=== PATIENT | female | born 1945 | race Caucasian/White ===

== ENCOUNTER 2016-12-14 06:56 | Day surgery (SDC) | payer MEDICARE, BC ==
[~2016-12-14] VITALS: Ht 167.7 cm; Wt 119.0 kg
[2016-12-14] VITALS (10 sets, daily range): BP systolic 93–139; BP diastolic 54–80; PULSE 52–59; TEMP 98.1
[~2016-12-14 06:56] MED LIST: AMLOPIDINE; ASPIRIN 32325 MG/TAB PO; ASPIRIN E.C.325 MG PO; ATORVASTATIN; BENICAR40 MG PO; BUFFERED ASPIR325 M1 PO; BYSTOLIC5 MG PO; CATAPRES 0.1MG0.1 MG PO; CENTRUM CARDIO PO; CLOPIDOGREL; CLOPIDOGREL PO; FORTAMET500 MG PO; HCTZ 25MG TAB25 MG PO; HCTZ12.5TAB PO; IMDUR 30MG30 MG/TAB PO; KLONOPIN 0.5MG0.5 MG PO; LEVOTHROID0.125 MG PO; LEVOTHYROXINE0.15 M1 PO; LISINOPRIL10 MG PO; LOPRESSOR 550 MG/TAB PO; LOPRESSOR100 MG PO; NIASPAN500 MG PO; NORVASC10 MG PO; RT SPIRIVA18 MCG IH; SYNTHROID PO; SYNTHROID0.175 MG PO; TOPROL XL50 MG PO; TYLENOL 325MG325 MG PO; TYLENOL 500MG500 MG PO; ULTRAM 50MG TAB50 MG PO; VICODIN 5/5001 UDTAB PO; ZOCOR80 MG PO; ZOLOFT 100MG100 MG PO; ZOLOFT 50MG50 MG PO
[2016-12-14] MEDS ORDERED: FISH OIL1000 MG PO (08:08)
[2016-12-14] MEDS ORDERED: MULTI VITAMINS1 TAB PO (08:10)
[2016-12-14] MEDS ORDERED: NIACOR500 MG PO (08:11)
[2016-12-14] MEDS ORDERED: NITROSTAT0.4 MG/TAB SL (08:11)
[2016-12-14] MEDS ORDERED: SPIRIVA RE2.5 MCG/Ac IH (08:14)
[2016-12-14 08:26] LABS: MEAN CELL VOLUME 88 fl (80.0-100.0); MEAN CORPUSCULAR HEMOGLOBIN 28 pg (27.0-31.0); MEAN CORPUSCULAR HGB CONC 32 g/dl (33.0-37.0); MEAN PLATELET VOLUME 10.2 fl (7.4-10.4); PLATELET COUNT 207 K/mm3 (130-400); RED BLOOD COUNT 4.33 M/mm3 (4.10-5.30); WHITE BLOOD COUNT 6.2 K/mm3 (4.8-10.8)
[2016-12-14 08:28] LABS: INR 0.9 (0.8-3.0); PROTHROMBIN TIME 10.3 SECONDS (9.7-12.8)
[2016-12-14 08:29] LABS: CREATININE, serum 0.71 mg/dL (0.52-1.25); POTASSIUM 4.1 mmol/L (3.4-5.0)
[2016-12-14] MEDS ORDERED: ASPIRIN E.C. 8181 MG PO (11:17)
== END 2016-12-14 13:00 | disposition home or self-care (01) ==
LOC: COL.RAD 06:56
PROVIDERS: Internal Medicine Interventional Cardiology
DX: I25.10 Atherosclerotic heart disease of native coronary artery without angina pectoris (principal); R94.39 Abnormal result of other cardiovascular function study; R07.9 Chest pain, unspecified; R60.0 Localized edema; I73.9 Peripheral vascular disease, unspecified; Z79.02 Long term (current) use of antithrombotics/antiplatelets; Z79.899 Other long term (current) drug therapy; Z79.82 Long term (current) use of aspirin; E03.9 Hypothyroidism, unspecified; I10 Essential (primary) hypertension; E78.5 Hyperlipidemia, unspecified; E11.9 Type 2 diabetes mellitus without complications; Z87.891 Personal history of nicotine dependence
CPT/HCPCS: C1760; J2250; J3010; Q9967

== ENCOUNTER → 2017-06-19 | Outpatient (CLI) | payer MEDICARE, BC ==
[~2017-06-19] MED LIST changes: +ASPIRIN E.C. 8181 MG PO; +FISH OIL1000 MG PO; +MULTI VITAMINS1 TAB PO; +NIACOR500 MG PO; +NITROSTAT0.4 MG/TAB SL; +SPIRIVA RE2.5 MCG/Ac IH
== END ==
LOC: COL.RAD 07:56
DX: R91.8 Other nonspecific abnormal finding of lung field (principal); C85.90 Non-Hodgkin lymphoma, unspecified, unspecified site; C88.4 Extranodal marginal zone B-cell lymphoma of mucosa-associated lymphoid tissue [MALT-lymphoma]
CPT/HCPCS: Q9967

== ENCOUNTER → 2017-11-15 | Outpatient (CLI) | payer MEDICARE, BC | LOC: MC.RAD 10:59 | DX: Z12.31 Encounter for screening mammogram for malignant neoplasm of breast (principal) ==

== ENCOUNTER → 2019-01-05 | Outpatient (CLI) | payer MEDICARE, BC | LOC: MC.RAD 11:00 | DX: Z12.31 Encounter for screening mammogram for malignant neoplasm of breast (principal) ==

== ENCOUNTER → 2019-06-03 | Outpatient (CLI) | payer MEDICARE, BC | LOC: COL.RAD 09:48 | DX: C88.4 Extranodal marginal zone B-cell lymphoma of mucosa-associated lymphoid tissue [MALT-lymphoma] (principal); R91.1 Solitary pulmonary nodule; Z90.710 Acquired absence of both cervix and uterus | CPT/HCPCS: Q9967 ==

== ENCOUNTER → 2022-12-10 | Outpatient (CLI) | payer MEDICARE, BC | LOC: COL.RAD 08:28 | DX: R91.8 Other nonspecific abnormal finding of lung field (principal); C88.4 Extranodal marginal zone B-cell lymphoma of mucosa-associated lymphoid tissue [MALT-lymphoma] | CPT/HCPCS: Q9967 ==

== ENCOUNTER → 2024-01-09 | Outpatient (CLI) | payer OTHER, MEDICAID ==
[~2024-01-09] MED LIST changes: +Iohexol 300 - 100 ML VIAL IV ONE; +NS 100 ML IV SCH
== END ==
LOC: COL.RAD 14:05
DX: R91.8 Other nonspecific abnormal finding of lung field (principal); C88.4 Extranodal marginal zone B-cell lymphoma of mucosa-associated lymphoid tissue [MALT-lymphoma]
CPT/HCPCS: Q9967